=== PATIENT | female | born 1960 | race Caucasian/White ===

== ENCOUNTER 2022-09-15 09:37 | Day surgery (SDC) | payer OTHER, SELFPAY ==
--- NOTE | 2022-09-14 11:05 | P.CONAN_ITS ---
Documented by User: Virgie Cole NP 09/14/22 11:08 HPI - Anesthesia Eval Consult details Narrative: 62yo F for Upper Endoscopy and Colonoscopy [facility] Past Medical History Medical History (Updated 09/14/22 @ 11:07 by Virgie Cole NP) Fatty liver HLD (hyperlipidemia) Osteoporosis Tubular adenoma Surgical History Surgical History (Updated 09/14/22 @ 11:07 by Virgie Cole NP) H/O section H/O colonoscopy History of hysterectomy Social History Social History Patient Tobacco Use Status: Former Tobacco user Use of substances other than those prescribed or required for medical reasons: No Are you DNR?: No Advance Directives: No Advance Directives Information Provided: Yes Advance Directives on File: No Meds Allergies Allergy/AdvReac Type Severity Reaction Status Date / Time codeine [CODEINE] AdvReac Mild GI UPSET Verified 09/15/22 10:21 Home Medications Medication Instructions Recorded Confirmed Last Taken Type Vitamin C 09/14/22 Unknown History calcium 09/14/22 Unknown History multivitamin 09/14/22 Unknown History Exam Exam Date and Time: September 14, 2022 1105 Assessment and Plan Assessment Anesthesia Assessment: Chart Reviewed Documented by User: Jasmeet Powell MD 09/15/22 11:34 [facility] Past Medical History Medical History (Updated 09/14/22 @ 11:07 by Virgie Cole NP) Fatty liver HLD (hyperlipidemia) Osteoporosis Tubular adenoma Family History Family history of problems with anesthesia: No Surgical History Surgical History (Updated 09/14/22 @ 11:07 by Virgie Cole NP) H/O section H/O colonoscopy History of hysterectomy History of Problems with Anesthesia: No Social History Social History Patient Tobacco Use Status: Former Tobacco user Use of substances other than those prescribed or required for medical reasons: No Are you DNR?: No Advance Directives: No Advance Directives Information Provided: Yes Advance Directives on File: No Meds Allergies Allergy/AdvReac Type Severity Reaction Status Date / Time codeine [CODEINE] AdvReac Mild GI UPSET Verified 09/15/22 10:21 Home Medications Medication Instructions Recorded Confirmed Last Taken Type Vitamin C 09/14/22 Unknown History calcium 09/14/22 Unknown History multivitamin 09/14/22 Unknown History Exam Airway Mallampati Class: I TM Dist: >3cm Neck ROM: Full Loose/Missing/Broken Teeth: No (Implant) Heart: rrr Lungs: cta Assessment and Plan Final Anesthetic Review Family History of Problems with Anesthesia: No History of Problems with Anesthesia: No NPO: Yes ASA Class: II Final Preanesthetic Review: No Changes in Pt Med Stat, Meds/Allgs Chart Reviewed, Consent Obtained/Reviewed and Anes Risks/Benef Reviewed Patient Risk: Low Procedure Risk: Low Anesthetic Plan Anesthetic Plan: Agree w/ Assess. and Plan Disposition: Standard PACU
[2022-09-15 10:23] VITALS: BMI 26.2
[2022-09-15 10:28] VITALS: BP 107/63; PULSE 86; RESP 16; TEMP 36.4; O2SAT 99
[2022-09-15] MEDS: Lactated Ringers 1,000 ML 100 ML IVCONT (10:53)
--- NOTE | 2022-09-15 11:29 | P.HPSUR_ITS ---
Pre-Procedural Eval Section A Date of Service: 09/15/22 Section B Chief Complaint: reflux disease,screening Details of Present Illness: see H&P no changes Relevant Family History (Specify if Yes): No Relevant Social History: None Present Medications: None Medical History: No relevant PMH Allergies: Allergies Allergy/AdvReac Type Severity Reaction Status Date / Time codeine [CODEINE] AdvReac Mild GI UPSET Verified 09/15/22 10:21 Review of Systems Sugical H&P ROS: Negative: Constitution, Cardiovascular, Respiratory, Neurological, Psychiatric, Hem-Onc, Allergic/Immunologic, Gastrointestinal, Genitourinary, Musculoskeletal, Integumentary, Endocrine and Eyes /Ears/Nose/Throat Exam Surgical H&P Exam: Normal: HEENT, Normal: Heart, Normal: Lungs, Normal: Extremities, Normal: Abdomen, Normal: Skin and Normal: Neurological Plan Diagnosis/Plan: Unchanged I have reviewed the history and physical and performed a pertinent physical examination on my patient. No changes have occurred unless specified. Time Spent With Patient Time: Total time managing care of this patient today ____ minutes.
[2022-09-15 12:20] VITALS: BP 99/58; PULSE 75; RESP 16; TEMP 36.3; O2SAT 98
--- NOTE | 2022-09-15 12:20 | P.BOP_ITS ---
Brief Operative Note Date of Service: 09/15/22 Pre-op diagnosis: gerd screening Post-op diagnosis: same Procedure: egd colonoscopy Surgeon: Roby Bender Anesthesia: MAC Was an Marine Equipment Test Engineer used for this Procedure?: No Estimated blood loss (mL): 2 Pathology: other Condition: stable Disposition: PACU
[2022-09-15 12:35] VITALS: BP 100/57; PULSE 71; RESP 16; TEMP 36.7; O2SAT 99
--- NOTE | 2022-09-15 13:10 | OP_ITS ---
SURGEON: Roby Bender MD INDICATIONS: 1. Gastroesophageal reflux disease. 2. Colon cancer screening. 3. Prior history of adenomatous colon polyps. PREOPERATIVE DIAGNOSIS: POSTOPERATIVE DIAGNOSIS: PROCEDURE PERFORMED: Upper endoscopy with biopsy, colonoscopy to the terminal ileum with biopsy. ESTIMATED BLOOD LOSS: COMPLICATIONS: ANESTHESIA: Monitored anesthesia care. ASSISTANTS: SPECIMENS: DESCRIPTION OF PROCEDURE: History and physical performed. The procedure was performed on 09/15/2021. The risks and benefits of the procedure were explained to the patient. Informed consent was obtained. The patient was placed in the left lateral decubitus position. The Olympus video gastroscope was introduced into the esophagus, stomach, and duodenum. Examination was performed. The scope was removed. She was repositioned for colonoscopy. A digital rectal exam was performed and was found to be normal. The Olympus pediatric video colonoscope was introduced into the rectum and advanced to the cecum without difficulty. The cecum was identified by transillumination, palpation, and identification of ileocecal valve. Examination was performed. The scope was removed. She tolerated the procedure well and was taken to recovery area in stable condition. FINDINGS: Upper endoscopy: 1. Esophagus the esophagus showed a very mild distal esophagus involving the last 1 cm of the esophagus. Biopsies were obtained from the EG junction. 2. Stomach: The stomach showed approximately 5/6 benign-appearing gastric polyps, less than 5 mm in the body and fundus consistent with fundic gland polyps. Two of these were biopsied. Antral biopsies were obtained to rule out H pylori. 3. Duodenum: The bulb and second portion were normal. Colonoscopy: The terminal ileum was examined and appeared normal. The visualized colonic mucosa was normal. In the right colon there were 2 less than 5 mm polyps, which were removed with biopsy forceps. No other polyps were identified. The quality of the prep was good. Retroflexed examination showed moderate-sized internal hemorrhoids. IMPRESSION: 1. Gastroesophageal reflux disease. 2. Gastric polyps. 3. Colon polyps. RECOMMENDATION: Follow up the biopsy results. MD NUSRAT Leon/SEKOU / [id number]
== END 2022-09-15 12:55 | disposition home or self-care (01) ==
PROVIDERS: PCP Internal Medicine Geriatric Medicine; Visit Provider Internal Medicine Gastroenterology
PROC: (CPT 45380; principal; 2022-09-15 11:00)
DX: Z12.11 Encounter for screening for malignant neoplasm of colon (principal); Z86.010 Personal history of colon polyps; D12.2 Benign neoplasm of ascending colon; K64.8 Other hemorrhoids; K21.9 Gastro-esophageal reflux disease without esophagitis; K29.50 Unspecified chronic gastritis without bleeding; K31.7 Polyp of stomach and duodenum; E78.5 Hyperlipidemia, unspecified; M81.0 Age-related osteoporosis without current pathological fracture; K76.0 Fatty (change of) liver, not elsewhere classified; Z88.0 Allergy status to penicillin; Z87.891 Personal history of nicotine dependence
CPT/HCPCS: 45380; 43239; 88305; 88342